=== PATIENT | female | born 1945 | race Caucasian/White ===

== ENCOUNTER 2023-09-19 10:41 | Outpatient (CLI) | payer BC, SELFPAY ==
--- NOTE | 2023-09-19 11:15 | CRLHL7_ITS ---
For Patients: As a result of the Century Cures Act, medical imaging exams and procedure reports are released immediately into your electronic medical record. You may view this report before your referring provider. If you have questions, please contact your health care provider. Indication: right quad pain, immobility Technique: Real-time grayscale ultrasound of the right quadriceps tendon performed. Comparison: None Findings: There is diffuse thickening and heterogeneity of the distal quadriceps tendon with associated postop changes including soft tissue sutures/chetan. The distal quadriceps tendon is ill-defined. No associated fluid collection or soft tissue mass. Diffuse atrophy of the quadriceps musculature noted. 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 Dictated by Naveen Aguilar MD @ 09/20/2023 5:51:51 AM (Electronically Signed)
== END 2023-09-19 10:42 | disposition home or self-care (01) ==
PROVIDERS: PCP Family Medicine; Visit Provider Physician Assistant
DX: M79.604 Pain in right leg (principal); S76.111A Strain of right quadriceps muscle, fascia and tendon, initial encounter; Z96.651 Presence of right artificial knee joint; Z98.890 Other specified postprocedural states
CPT/HCPCS: 76882